=== PATIENT | male | born 1965 | race Hispanic/Latino ===

== ENCOUNTER 2021-03-13 08:15 | Inpatient (IN) | payer BC ==
[2021-03-13 11:23] LABS: Hemoglobin 15.7 g/dL (13.5-17.5); Mean Corpuscular HGB CONC 32.2 g/dL (32.0-36.0); Mean Corpuscular Hemoglobin 28.2 pg (27.0-33.0); Mean Corpuscular Volume 87.8 fl (81.2-95.1); Mean Platelet Volume 12.6 fl (7.4-10.4); Platelet Count 152 10x3/uL (150-450); RBC Distribution Width 12.7 % (11.5-14.5); Red Blood Cell (RBC) Count 5.56 10x6/uL (4.32-5.72); White Blood Cell (WBC) Count 4.1 10x3/uL (3.5-10.5)
[2021-03-13 11:44] LABS: Anion Gap 11 mmol/L (10-20); BUN (Urea Nitrogen) 21 mg/dL (8.4-25.7); Calc. Creatinine Clearance 0 mL/min (70-130); Calcium 9.5 mg/dL (7.8-10.44); Carbon Dioxide 29 mmol/L (22-29); Chloride 105 mmol/L (98-107); Glucose 126 mg/dL (70-105); Potassium 4.3 mmol/L (3.5-5.1); Sodium 141 mmol/L (136-145)
[2021-03-13 20:43] LABS: SARS-CoV-2 PCR by NAA Not Detected (NotDetected)
[2021-03-18] MEDS ORDERED: ceFAZolin 2 GM/DEX 5% 100 ML BAG ONE (05:59)
[2021-03-18] MEDS ORDERED: Lidocaine 1% MPF 2 ML VIAL ONE (05:59)
[2021-03-18] MEDS ORDERED: Clindamycin/D5W 900 mg/50 ml Premix Bag ONE (06:24)
[2021-03-18] MEDS ORDERED: EPINEPHrine 1 MG/ML AMP ONE (06:29)
[2021-03-18] MEDS ORDERED: Dexamethasone 4 mg/ml Vial ONE (06:29)
[2021-03-18] MEDS ORDERED: Bupivacaine PF 0.5% 30 ML VIAL ONE (06:29)
[2021-03-18] MEDS ORDERED: Albumin 5% 500 ML ONE (06:29)
[2021-03-18] MEDS ORDERED: Vancomycin 1.5 GRAM/300 ML BAG 1.5 GM in Premix Bag 1 BAG IVPB SCH (06:30)
[2021-03-18] MEDS ORDERED: Midazolam HCl 5 mg/5 ml Vial ONE (06:37)
[2021-03-18] MEDS ORDERED: Fentanyl 250 MCG/5 ML VIAL ONE (06:37)
[2021-03-18] MEDS ORDERED: Heparin 10,000 UNITS/1 ML VIAL 30,000 UNITS in Sodium Chloride 0.9% 1,000 ML FS SCH (06:45)
[2021-03-18] MEDS ORDERED: Lidocaine 1% PF 5 ML VIAL ONE (07:08)
[2021-03-18] MEDS ORDERED: Cardioplegic Soln 1,000 ML BAG ONE (07:08)
[2021-03-18] MEDS ORDERED: Phenylephrine 10 MG/ML VIAL ONE (07:08)
[2021-03-18] MEDS ORDERED: PROPOFOL 200 MG/20 ML VIAL ONE (07:08)
[2021-03-18] MEDS ORDERED: Potassium Chloride 60 MEQ/30 ML VIAL ONE (07:08)
[2021-03-18] MEDS ORDERED: Magnesium Sulfate 1 GM/2 ML VIAL ONE (07:08)
[2021-03-18] MEDS ORDERED: Rocuronium Bromide 10 MG/ML (10ML VIAL) ONE (07:08)
[2021-03-18] MEDS ORDERED: Heparin 30,000 units/30 ml VIAL ONE (07:08)
[2021-03-18] MEDS ORDERED: Protamine Sulfate 250 MG/25 ML VIAL ONE (07:08)
[2021-03-18] MEDS ORDERED: Ondansetron PF 4 MG/2 ML Vial ONE (07:08)
[2021-03-18] MEDS ORDERED: Thrombin 5000 UNITS/5 ML VIAL ONE (07:08)
[2021-03-18] MEDS ORDERED: Aminocaproic Acid 5 GM/20 ML VIAL ONE (07:08)
[2021-03-18] MEDS ORDERED: Papaverine 60 MG/2 ML VIAL ONE (07:08)
[2021-03-18] MEDS ORDERED: Calcium Chloride 1 GM/10 ML Abboject SYRINGE ONE (07:08)
[2021-03-18] MEDS ORDERED: Sodium Bicarb 50 MEQ/50 ML Abboject 8.4% SYRINGE ONE (07:08)
[2021-03-18] MEDS ORDERED: Vecuronium 10 MG VIAL ONE (07:08)
[2021-03-18] MEDS ORDERED: Mannitol 12.5 GM/50 ML ONE (07:08)
[2021-03-18] MEDS ORDERED: Lidocaine 2% PF 100 mg/5 ml Syringe ONE (07:08)
[2021-03-18] MEDS ORDERED: Heparin 5,000 UNITS/ML VIAL ONE (07:08)
[2021-03-18] MEDS ORDERED: Sodium Chloride 0.9% 10 ML ONE (07:29)
[2021-03-18] MEDS ORDERED: PHENYLEPHRINE-NS 100 MCG/ML 10 ML SYRINGE ONE (10:10)
[2021-03-18] MEDS ORDERED: Hetastarch 6% 500 ML 500 ML IVPB PRN (11:34)
[2021-03-18] MEDS ORDERED: Fentanyl 100 MCG/2 ML VIAL SLOW IVP PRN ×2 (11:34)
[2021-03-18] MEDS ORDERED: Ondansetron PF 4 MG/2 ML Vial IVP PRN (11:34)
[2021-03-18] MEDS ORDERED: Bisacodyl 5 MG TAB PO PRN (11:34)
[2021-03-18] MEDS ORDERED: traMADol HCl 50 MG TAB PO PRN ×2 (11:34)
[2021-03-18] MEDS ORDERED: Nitroglycerin 50 MG/250 ML BOT 250 ML IVPB PRN (11:34)
[2021-03-18] MEDS ORDERED: Mag-Al 1200 mg/1200 mg/30 ML UDCUP PO PRN (11:34)
[2021-03-18] MEDS ORDERED: Norepinephrine 8 MG/0.9% NS 250 ML IVPB PRN (11:34)
[2021-03-18] MEDS ORDERED: Guaifenesin DM 100-10/5 ML UDCUP PO PRN (11:34)
[2021-03-18] MEDS ORDERED: Post-Op Insulin Drip Protocol IVPB ONE (11:34)
[2021-03-18] MEDS ORDERED: Magnesium 2 GM/50 ML 2 GM in Premix Bag 1 BAG IVPB SCH (11:34)
[2021-03-18] MEDS ORDERED: niCARdipine 25 MG in Sodium Chloride 0.9% 250 ML 250 ML IVPB PRN (11:34)
[2021-03-18] MEDS ORDERED: Promethazine HCl 25 MG/ML VIAL IM PRN (11:34)
[2021-03-18] MEDS ORDERED: Bisacodyl 10 MG SUPP PR PRN (11:34)
[2021-03-18] MEDS ORDERED: D5 1/2 NS w/20 mEq KCL 1,000 ML IV SCH (11:34)
[2021-03-18 11:50] LABS: ALV-art Gradient 240.325 mmHg (0-20); Actual Bicarbonate (HCO3a) 17.8 mEq/L (22-28); Base Excess (BEa) -8.2 mEq/L (-2.0 to +3.0); CO2 Tension 38.3 mmHg (35.0-45.0); Calcium, Ionized (arterial) 1.19 mmol/L (1.12-1.30); Carboxyhemoglobin (COHb) 0.4 gm% (0.0-3.0); Hemoglobin (Hb) 14.4 g/dL (14.0-18.0); O2 Tension (PaO2), arterial 139.6 mmHg (80.0-100.0); Potassium - ABG Lab 3.79 mmol/L (3.70-5.30); Puncture Site Arterial Line; pH, Arterial 7.29 (7.35-7.45)
[2021-03-18 12:17] LABS: Mean Corpuscular HGB CONC 33.8 g/dL (32.0-36.0); Mean Corpuscular Hemoglobin 30.2 pg (27.0-31.0); Mean Corpuscular Volume 89.3 fL (78.0-98.0); Red Blood Cell (RBC) Count 4.65 mill/uL (4.70-6.10); White Blood Cell (WBC) Count 10.1 thou/uL (4.8-10.8)
[2021-03-18] MEDS ORDERED: Prevnar 13-Val Conj/PF 0.5 ML SYRINGE IM ONE (12:30)
[2021-03-18] MEDS ORDERED: FLU VACC QS2021-22(6MOS UP)/PF 60 MCG/0.5 ML SYRINGE IM ONE (12:30)
[2021-03-18 12:31] LABS: Anion Gap 13 mmol/L (10-20); BUN (Urea Nitrogen) 17 mg/dL (8.4-25.7); Calc. Creatinine Clearance 177 mL/min (70-130); Calcium 8.5 mg/dL (7.8-10.44); Carbon Dioxide 22 mmol/L (22-29); Chloride 109 mmol/L (98-107); Glucose 151 mg/dL (70-105); Potassium 3.7 mmol/L (3.5-5.1); Sodium 140 mmol/L (136-145)
[2021-03-18 12:35] LABS: INR-International Normal Ratio 1.2; PTT 49.8 sec (22.9-36.1); Prothrombin Time 15.6 sec (12.0-14.7)
[2021-03-18 12:40] LABS: #Eosinphils 0.1 thou/uL (0.0-0.7); #Lymphocytes 1.2 thou/uL (1.20-3.40); #Monocytes 0.8 thou/uL (0.11-0.59); #Neutrophils 8.1 thou/uL (1.40-6.50); %Basophils 0.1 % (0.0-1.0); %Eosinophils 0.8 % (0.0-10.0); %Monocytes 7.6 % (0.0-10.0); %Neutrophils 79.5 % (42.0-75.0); MDiff Complete? YES; Mean Platelet Volume 10.5 fL (7.4-10.4); Platelet Count 117 thou/uL (130-400); RBC Distribution Width 12.1 % (11.5-14.5)
[2021-03-18 12:41] LABS: Platelet Morphology Comment Appears Decreased; Polychromasia SLIGHT = 2-3 cells (100X) (0-2/hpf)
[2021-03-18] MEDS ORDERED: Morphine 4 MG/ML VIAL SLOW IVP PRN (12:43)
[2021-03-18] MEDS ORDERED: Dextrose 50% Abboject 50 ML SYRINGE SLOW IVP PRN (12:45)
[2021-03-18] MEDS ORDERED: HUMULIN R 100 UNITS in Sodium Chloride 0.9% 100 ML IVPB SCH (12:45)
[2021-03-18] MEDS ORDERED: Dextrose 5% in Water 1,000 ML IV PRN (12:45)
[2021-03-18] MEDS ORDERED: Lantus 1000 UNITS/10 ML VIAL SC PRN (12:45)
[2021-03-18] MEDS ORDERED: Vancomycin HCl 1.5 GM in Premix Bag 1 BAG IVPB SCH (13:00)
[2021-03-18] MEDS: Clindamycin/D5W 900 MG in Premix Bag 1 BAG IVPB SCH ×2 (13:12→17:41)
[2021-03-18] MEDS: Ketorolac Tromethamine 30 MG/ML VIAL IVP SCH ×2 (13:12→17:40)
[2021-03-18 14:56] LABS: Actual Bicarbonate (HCO3a) 16.7 mEq/L (22-28); Base Excess (BEa) -8.5 mEq/L (-2.0 to +3.0); CO2 Tension 33.6 mmHg (35.0-45.0); Calcium, Ionized (arterial) 1.16 mmol/L (1.12-1.30); Carboxyhemoglobin (COHb) 0.5 gm% (0.0-3.0); Hemoglobin (Hb) 13.9 g/dL (14.0-18.0); Potassium - ABG Lab 3.84 mmol/L (3.70-5.30); pH, Arterial 7.31 (7.35-7.45)
[2021-03-18 14:57] LABS: Puncture Site Arterial Line
[2021-03-18] MEDS: Insulin Regular 300 UNITS/3 ML VIAL SC PRN ×2 (17:40→20:08)
[2021-03-18 17:44] LABS: Hemoglobin 12.6 g/dL (14.0-18.0)
[2021-03-18] MEDS: Vancomycin 1.5 GRAM/300 ML BAG 1.5 GM in Premix Bag 1 BAG IVPB SCH (20:07)
[2021-03-18] MEDS: Rosuvastatin 20 MG TAB PO SCH (20:08)
[2021-03-18] MEDS: Famotidine/PF 20 mg/2ml Vial SLOW IVP SCH (20:08)
[2021-03-19] MEDS: Ketorolac Tromethamine 30 MG/ML VIAL IVP SCH ×5 (00:03→23:29)
[2021-03-19] MEDS: Clindamycin/D5W 900 MG in Premix Bag 1 BAG IVPB SCH ×2 (00:03→05:54)
[2021-03-19] MEDS: Acetaminophen 325 MG TAB PO PRN ×2 (04:41→20:43)
[2021-03-19] MEDS: Insulin Regular 300 UNITS/3 ML VIAL SC PRN (04:44)
[2021-03-19 04:45] LABS: #Basophils 0.1 thou/uL (0.0-0.2); #Lymphocytes 1.3 thou/uL (1.20-3.40); #Neutrophils 7.3 thou/uL (1.40-6.50); %Basophils 0.6 % (0.0-1.0); %Eosinophils 0.2 % (0.0-10.0); %Lymphocytes 13.9 % (21.0-51.0); %Monocytes 10.2 % (0.0-10.0); %Neutrophils 75.1 % (42.0-75.0); Hemoglobin 12.6 g/dL (14.0-18.0); Mean Corpuscular Hemoglobin 32.1 pg (27.0-31.0); Mean Corpuscular Volume 89.1 fL (78.0-98.0); Mean Platelet Volume 9.7 fL (7.4-10.4); Platelet Count 137 thou/uL (130-400); RBC Distribution Width 12.1 % (11.5-14.5); Red Blood Cell (RBC) Count 3.93 mill/uL (4.70-6.10); White Blood Cell (WBC) Count 9.7 thou/uL (4.8-10.8)
[2021-03-19 05:07] LABS: Anion Gap 15 mmol/L (10-20); BUN (Urea Nitrogen) 19 mg/dL (8.4-25.7); Calc. Creatinine Clearance 161 mL/min (70-130); Calcium 8.8 mg/dL (7.8-10.44); Carbon Dioxide 19 mmol/L (22-29); Chloride 106 mmol/L (98-107); Glucose 136 mg/dL (70-105); Potassium 3.6 mmol/L (3.5-5.1); Sodium 136 mmol/L (136-145)
[2021-03-19] MEDS: Levothyroxine Sodium 100 MCG TAB PO SCH (05:54)
[2021-03-19] MEDS: Potassium Chloride 20 MEQ/100 ML PREMIX BAG IVPB PRN (05:54)
[2021-03-19] MEDS: Aspirin 325 MG TAB PO SCH (09:24)
[2021-03-19] MEDS: Magnesium 2 GM/50 ML 2 GM in Premix Bag 1 BAG IVPB SCH (09:24)
[2021-03-19] MEDS: Vancomycin 1.5 GRAM/300 ML BAG 1.5 GM in Premix Bag 1 BAG IVPB SCH (09:24)
[2021-03-19] MEDS: Thyroid 30 MG TAB PO SCH (09:24)
[2021-03-19] MEDS: Famotidine/PF 20 mg/2ml Vial SLOW IVP SCH ×2 (09:26→20:43)
[2021-03-19] MEDS ORDERED: Dextrose 50% Abboject 50 ML SYRINGE IVP PRN (17:30)
[2021-03-19] MEDS ORDERED: metFORMIN 500 MG TAB PO SCH (17:30)
[2021-03-19] MEDS ORDERED: Dextrose 5% in Water 1,000 ML IV PRN (17:30)
[2021-03-19 17:34] VITALS: BMI 34.0
[2021-03-19] MEDS: HumaLOG 300 UNITS/3 ML VIAL SC PRN (17:54)
[2021-03-19] MEDS: Rosuvastatin 20 MG TAB PO SCH (20:43)
[2021-03-19] MEDS: Lantus 1000 UNITS/10 ML VIAL SC SCH (20:44)
[2021-03-20 04:08] LABS: Anion Gap 12 mmol/L (10-20); BUN (Urea Nitrogen) 20 mg/dL (8.4-25.7); Calc. Creatinine Clearance 156 mL/min (70-130); Calcium 8.1 mg/dL (7.8-10.44); Carbon Dioxide 20 mmol/L (22-29); Chloride 107 mmol/L (98-107); Glucose 165 mg/dL (70-105); Potassium 3.8 mmol/L (3.5-5.1); Sodium 135 mmol/L (136-145)
[2021-03-20 04:33] LABS: MDiff Complete? YES
[2021-03-20 04:34] LABS: #Lymphocytes 1.1 thou/uL (1.20-3.40); #Monocytes 0.5 thou/uL (0.11-0.59); #Neutrophils 4.1 thou/uL (1.40-6.50); %Basophils 0.3 % (0.0-1.0); %Eosinophils 0.3 % (0.0-10.0); %Lymphocytes 18.5 % (21.0-51.0); %Monocytes 8.9 % (0.0-10.0); %Neutrophils 71.9 % (42.0-75.0); Large Platelets SLIGHT; Mean Corpuscular HGB CONC 34.1 g/dL (32.0-36.0); Mean Corpuscular Volume 87.9 fL (78.0-98.0); Mean Platelet Volume 10.2 fL (7.4-10.4); Platelet Count 91 thou/uL (130-400); Platelet Morphology Comment Appears Adequate; RBC Morphology Normal; Red Blood Cell (RBC) Count 3.33 mill/uL (4.70-6.10); White Blood Cell (WBC) Count 5.7 thou/uL (4.8-10.8)
[2021-03-20] MEDS: Potassium Chloride 20 MEQ/100 ML PREMIX BAG IVPB PRN (05:40)
[2021-03-20] MEDS: Ketorolac Tromethamine 30 MG/ML VIAL IVP SCH ×4 (05:40→23:59)
[2021-03-20] MEDS: Levothyroxine Sodium 100 MCG TAB PO SCH (05:40)
[2021-03-20] MEDS ORDERED: Zolpidem Tartrate 5 MG TAB PO PRN (07:20)
[2021-03-20] MEDS ORDERED: diphenhydrAMINE 25 MG CAP PO PRN (07:20)
[2021-03-20] MEDS ORDERED: Bisacodyl 5 MG TAB PO PRN (07:20)
[2021-03-20] MEDS ORDERED: Mineral Oil ENEMA PR PRN (07:20)
[2021-03-20] MEDS ORDERED: Milk Of Magnesia 30 ML UDCUP PO PRN (07:20)
[2021-03-20] MEDS ORDERED: Guaifenesin DM 100-10/5 ML UDCUP PO PRN (07:20)
[2021-03-20] MEDS ORDERED: Nitroglycerin 0.4 MG TAB (25 Tab Bottle) SL PRN (07:20)
[2021-03-20] MEDS ORDERED: Mag-Al 1200 mg/1200 mg/30 ML UDCUP PO PRN (07:20)
[2021-03-20] MEDS ORDERED: Bisacodyl 10 MG SUPP PR PRN (07:20)
[2021-03-20] MEDS: Aspirin 325 MG TAB PO SCH (09:22)
[2021-03-20] MEDS: Thyroid 30 MG TAB PO SCH (09:22)
[2021-03-20] MEDS: Magnesium 2 GM/50 ML 2 GM in Premix Bag 1 BAG IVPB SCH (09:23)
[2021-03-20] MEDS: Famotidine/PF 20 mg/2ml Vial SLOW IVP SCH (09:23)
[2021-03-20] MEDS: metFORMIN 500 MG TAB PO SCH ×3 (09:23→17:22)
[2021-03-20] MEDS: HumaLOG 300 UNITS/3 ML VIAL SC PRN ×2 (11:58→17:22)
[2021-03-20] MEDS: Rosuvastatin 20 MG TAB PO SCH (20:46)
[2021-03-20] MEDS: Lantus 1000 UNITS/10 ML VIAL SC SCH (20:47)
[2021-03-21] MEDS: Acetaminophen 325 MG TAB PO PRN ×2 (00:03→19:45)
[2021-03-21] MEDS: Ketorolac Tromethamine 30 MG/ML VIAL IVP SCH ×2 (05:31→12:25)
[2021-03-21] MEDS: Levothyroxine Sodium 100 MCG TAB PO SCH (05:31)
[2021-03-21] MEDS: Insulin Regular 300 UNITS/3 ML VIAL SC PRN ×3 (06:19→17:14)
[2021-03-21] MEDS: metFORMIN 500 MG TAB PO SCH ×3 (10:23→17:14)
[2021-03-21] MEDS: Thyroid 30 MG TAB PO SCH (10:23)
[2021-03-21] MEDS: Aspirin 325 MG TAB PO SCH (10:24)
[2021-03-21] MEDS: Rosuvastatin 20 MG TAB PO SCH (21:54)
[2021-03-21] MEDS: Lantus 1000 UNITS/10 ML VIAL SC SCH (22:06)
[2021-03-22] MEDS: Levothyroxine Sodium 100 MCG TAB PO SCH (06:22)
[2021-03-22] MEDS: Thyroid 30 MG TAB PO SCH (09:00)
[2021-03-22] MEDS: Acetaminophen 325 MG TAB PO PRN (09:00)
[2021-03-22] MEDS: metFORMIN 500 MG TAB PO SCH (09:00)
[2021-03-22] MEDS: Aspirin 325 MG TAB PO SCH (09:00)
[2021-03-22 09:15] VITALS: BP 111/66
[2021-03-22 10:37] VITALS: TEMP 98.9
[2021-03-24] MEDS ORDERED: Levothyroxine Sodium 112 MCG TAB PO SCH (06:00)
== END 2021-03-22 10:44 | disposition home or self-care (01) | DRG 236 ==
LOC: SURG A 03-18 05:50 → CCU 03-18 09:21 → 2NO 03-20 20:46
PROVIDERS: ADMIT Thoracic Surgery (Cardiothoracic Vascular Surgery); ATTEND Thoracic Surgery (Cardiothoracic Vascular Surgery)
PROC: 02100Z9 Bypass Coronary Artery, One Artery from Left Internal Mammary, Open Approach (ICD-10-PCS; principal; 2021-03-18)
PROC: 0212093 Bypass Coronary Artery, Three Arteries from Coronary Artery with Autologous Venous Tissue, Open Approach (ICD-10-PCS; 2021-03-18)
PROC: 06BP4ZZ Excision of Right Saphenous Vein, Percutaneous Endoscopic Approach (ICD-10-PCS; 2021-03-18)
PROC: 5A1221Z Performance of Cardiac Output, Continuous (ICD-10-PCS; 2021-03-18)
PROC: 3E033XZ Introduction of Vasopressor into Peripheral Vein, Percutaneous Approach (ICD-10-PCS; 2021-03-18)
DX: I25.10 Atherosclerotic heart disease of native coronary artery without angina pectoris (principal); Z20.822 Contact with and (suspected) exposure to COVID-19; I10 Essential (primary) hypertension; E78.2 Mixed hyperlipidemia; E03.9 Hypothyroidism, unspecified; G47.33 Obstructive sleep apnea (adult) (pediatric); J30.2 Other seasonal allergic rhinitis; E11.51 Type 2 diabetes mellitus with diabetic peripheral angiopathy without gangrene; F41.9 Anxiety disorder, unspecified; F32.A Depression, unspecified; Z87.891 Personal history of nicotine dependence; Z79.84 Long term (current) use of oral hypoglycemic drugs; Z79.4 Long term (current) use of insulin; Z79.890 Hormone replacement therapy; Z79.899 Other long term (current) drug therapy; Z79.82 Long term (current) use of aspirin; Z88.1 Allergy status to other antibiotic agents
CPT/HCPCS: 36415; 36416; 71045; 80048; 82805; 85025; 85027; 85610; 85730; 86850; 86900; 86901; 93005; 93010; 93798; 94002; 94640; C1713; C1776; J0171; J1100; J1642; J1644; J1815; J1885; J2001; J2150; J2250; J2370; J2405; J2440; J2704; J2720; J3010; J3370; J3475; J3480; J3490; J7620; P9045; S0017; S0020; S0028; U0003; U0005

== ENCOUNTER 2021-03-13 08:19 | Outpatient (CLI) | payer BC ==
[2021-03-13 11:23] LABS: Hemoglobin 15.7 g/dL (13.5-17.5); Mean Corpuscular HGB CONC 32.2 g/dL (32.0-36.0); Mean Corpuscular Hemoglobin 28.2 pg (27.0-33.0); Mean Corpuscular Volume 87.8 fl (81.2-95.1); Mean Platelet Volume 12.6 fl (7.4-10.4); Platelet Count 152 10x3/uL (150-450); RBC Distribution Width 12.7 % (11.5-14.5); Red Blood Cell (RBC) Count 5.56 10x6/uL (4.32-5.72); White Blood Cell (WBC) Count 4.1 10x3/uL (3.5-10.5)
[2021-03-13 11:44] LABS: Anion Gap 11 mmol/L (10-20); BUN (Urea Nitrogen) 21 mg/dL (8.4-25.7); Calc. Creatinine Clearance 0 mL/min (70-130); Calcium 9.5 mg/dL (7.8-10.44); Carbon Dioxide 29 mmol/L (22-29); Chloride 105 mmol/L (98-107); Glucose 126 mg/dL (70-105); Potassium 4.3 mmol/L (3.5-5.1); Sodium 141 mmol/L (136-145)
[2021-03-13 20:43] LABS: SARS-CoV-2 PCR by NAA Not Detected (NotDetected)
== END 2021-03-13 08:20 | disposition home or self-care (01) ==
LOC: LABBT 08:19
PROVIDERS: ATTEND Thoracic Surgery (Cardiothoracic Vascular Surgery)
DX: Z01.818 Encounter for other preprocedural examination (principal); I25.10 Atherosclerotic heart disease of native coronary artery without angina pectoris; Z20.822 Contact with and (suspected) exposure to COVID-19
CPT/HCPCS: 71046; 80048; 85027; 86850; 86900; 86901; 93005; 93010; U0003; U0005

== ENCOUNTER 2021-12-02 15:44 | Outpatient (CLI) | payer BC | END 2021-12-02 15:45 | disposition home or self-care (01) | LOC: LABBT 15:44 | PROVIDERS: ATTEND Internal Medicine | DX: Z20.822 Contact with and (suspected) exposure to COVID-19 (principal) | CPT/HCPCS: 87811 ==

== ENCOUNTER 2021-12-05 07:54 | Day surgery (SDC) | payer BC ==
[2021-12-03 11:52] VITALS: BMI 34.7
[2021-12-05] MEDS ORDERED: Fentanyl 100 MCG/2 ML VIAL ONE (08:28)
[2021-12-05] MEDS ORDERED: PROPOFOL 200 MG/20 ML VIAL ONE (08:46)
== END 2021-12-05 10:26 | disposition home or self-care (01) ==
LOC: SDC 07:54
PROVIDERS: ATTEND Internal Medicine
PROC: 0DBL8ZZ Excision of Transverse Colon, Via Natural or Artificial Opening Endoscopic (ICD-10-PCS; principal; 2021-12-05)
PROC: 0DB58ZX Excision of Esophagus, Via Natural or Artificial Opening Endoscopic, Diagnostic (ICD-10-PCS; principal; 2021-12-05)
PROC: 0DBK8ZZ Excision of Ascending Colon, Via Natural or Artificial Opening Endoscopic (ICD-10-PCS; principal; 2021-12-05)
PROC: 0DBH8ZZ Excision of Cecum, Via Natural or Artificial Opening Endoscopic (ICD-10-PCS; principal; 2021-12-05)
DX: Z12.11 Encounter for screening for malignant neoplasm of colon (principal); D12.0 Benign neoplasm of cecum; D12.2 Benign neoplasm of ascending colon; D12.3 Benign neoplasm of transverse colon; K57.30 Diverticulosis of large intestine without perforation or abscess without bleeding; K64.4 Residual hemorrhoidal skin tags; K64.8 Other hemorrhoids; K59.09 Other constipation; K31.7 Polyp of stomach and duodenum; K21.9 Gastro-esophageal reflux disease without esophagitis; I25.10 Atherosclerotic heart disease of native coronary artery without angina pectoris; I10 Essential (primary) hypertension; E07.9 Disorder of thyroid, unspecified; E11.9 Type 2 diabetes mellitus without complications; E78.00 Pure hypercholesterolemia, unspecified; Z79.4 Long term (current) use of insulin; Z79.82 Long term (current) use of aspirin; Z79.84 Long term (current) use of oral hypoglycemic drugs; Z79.890 Hormone replacement therapy; Z79.899 Other long term (current) drug therapy; Z88.0 Allergy status to penicillin; Z87.891 Personal history of nicotine dependence; Z95.1 Presence of aortocoronary bypass graft
CPT/HCPCS: 88305; 93005; 93010; J2704; J3010